=== PATIENT | male | born 1995 | race Caucasian/White ===

== ENCOUNTER 2023-10-27 10:26 | Emergency (ER) | payer OTHER ==
[2023-10-27 11:19] VITALS: BP 124/70; PULSE 81; RESP 18; TEMP 98; BMI 23.0
[2023-10-27] MEDS ORDERED: IBUPROFEN 600 MG TABLET (FP) PO ONE ×2 (11:53→11:54)
[2023-10-27] MEDS ORDERED: ACETAMINOPHEN 500 MG TABLET (FP) PO ONE (11:53)
[2023-10-27] MEDS ORDERED: LIDOCAINE 4% PATCH TP ONE ×2 (11:53→11:54)
[2023-10-27] MEDS ORDERED: ACETAMINOPHEN 500 MG TABLET (FP) ONE (11:55)
[2023-10-27] MEDS ORDERED: LIDOCAINE PATCH REMOVAL MC ONE (22:00)
== END 2023-10-27 13:16 | disposition home or self-care (01) ==
LOC: JERFT 10:26 → JER 10:26 → JERFT 13:16
DX: M54.6 Pain in thoracic spine (principal); R07.81 Pleurodynia
CPT/HCPCS: 71046-TC-FY; 71101-TC-RT-FY; 93005; 93010; 99283-25